=== PATIENT | female | born 1980 ===

== ENCOUNTER 2018-02-28 14:06 | Emergency (ER) | payer BC, OTHER ==
[2018-02-28] MEDS ORDERED: Lactated Ringer's 1,000 ML IV SCH ×2 (15:15→17:45)
[2018-02-28] MEDS ORDERED: Betamethasone Soluspan 30 mg/5mL Inj Susp IM ONE (20:14)
--- NOTE | 2018-02-28 21:20 | OBHP ---
Datetime: 02/28/2018 14:44 IP Adm Impression: , intrauterine IP Admit Plan: Observation/Evaluation; Discharge home Admit Comment, IP Provider: 37 yo at 27+ 4wks w/ EDC 05/26/2018, sent by Dr. Gil for diffuse abdominal pain x 1 week, dx'd w/ UTI at [facility] ED on ., 02/22/2018 and rx'd macrobid 1 00 mg BID x 7 days. Pt reports that she has not had a BM x 1 week, feels very gassy, tried prune jui ce yesterday and vomited. Pt reports that she tried to give herself an enema and fainted on ., 02/24/2018. Pt was seen by MFM u/s today and was found to have polyhydramnios, 24.6, CL 3.3-3.6 cm, no evidence of funneling noted. PMH: Healthy PSH: Robotic--> open myomectomy w/ Dr. 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 Gil Extremities - PN: Normal Abdomen - PN: Abnormal Back - PN: Normal Lungs - PN: Normal Heart - PN: Normal Neurologic - PN: Normal General - PN: Normal FHR - Baseline A Provider: 130's Membranes, Provider: Intact Comments, ACOG Physical Exam: Diffuse tenderness of abdomen EGA AdmitDate IP: 27.4 Vital Signs Provider: Reviewed IP Chief Complaint: Maternal discomfort NICHD Variability Prov Fetus A: Moderate 6-25bpm Dilatation, Provider: 0 Effacement, Provider: 0 Station, Provider: -3
[2018-03-01 09:16] VITALS: BP 115/64; PULSE 107; RESP 17; TEMP 98.2; O2SAT 99
== END 2018-02-28 21:00 | disposition home or self-care (01) ==
LOC: H.EROB2 14:06 → H.EROB 14:07 → H.EROB2 21:00
DX: O26.92 Pregnancy related conditions, unspecified, second trimester (principal); R10.2 Pelvic and perineal pain; O23.42 Unspecified infection of urinary tract in pregnancy, second trimester; Z3A.27 27 weeks gestation of pregnancy
CPT/HCPCS: 96360; 96372; 99283; J0702; J7120

== ENCOUNTER 2018-03-01 19:28 | Emergency (ER) | payer BC, OTHER ==
[2018-03-01] MEDS ORDERED: Betamethasone Soluspan 30 mg/5mL Inj Susp IM ONE (19:58)
[2018-03-02 02:03] VITALS: BP 113/65; PULSE 105; RESP 16; TEMP 98.9; O2SAT 99
--- NOTE | 2018-03-02 08:58 | OBDCSUM ---
Datetime: 03/01/2018 21:40 Discharged to, Provider: Home Follow up at, Provider: Dr. Gil Disch Instr Activity: Normal activity Disch Instr Diet: Regular Discharge Time: 03/01/2018 21:40 Follow up in weeks, Provider: March 08 for scheduled appointment Disch Referrals: None Discharge Comment, Provider: Orders called in and given to nurse by Dr [facility] Diagnosis Prov Other: Second steroid injection
--- NOTE | 2018-03-02 08:58 | OBHP ---
Datetime: 03/01/2018 19:59 IP Adm Impression: , intrauterine ; No Active Labor; Intact Membranes IP Admit Plan: Observation/Evaluation Admit Comment, IP Provider: 37 yo at 27.5 weeks based on YONY of 05/26/18 presents today for h er second Celestone IM shot and NST. Patient visted the OB ED yesterday for complaints of lower pelvi c pain. She was given a dose of Celestone 12mg yesterday and a dose of enema. She denies vaginal blee ding and loss of fluid per the vagina. She reports good movement. Patient reports she is being treated for a UTI with Macrobid and today is her last dose. Denies chest pain, shortness of breath, c snf pain, nausea, vomiting, fevers or dysuria. ROS: systems reviewed and negative except for stated above in the HPI. Obhx: 1 SAB PMH: Denies Social hx: Denies illicit drug use, smoking history and alcohol use. Surgical hx: Inguinal hernia repair in the . Breast reduction 2004 and Myomectomy 03/2018- no complications from either procedure. Medications: Tylenol; PNV; Nitrofurantoin- 1 capsule Q12H Allergies: Shellfish- Allergy Physical exam: In no acute distress. Heart: S1 and S2 appreciated on exam. No murmurs, gallops or rubs. Lungs: Clear air entry bilaterally. Abdomen: Soft, non-tender to palpation. Gravid FHT: 145 baseline; moderate variability; Accelerations present; No decelerations; No contractions ; Category 1 tracing. Assessment: 37 yo with IUP at 27.5 weeks based on YONY of 05/26/18 presents today for her se cond Celestone IM shot and NST Plan: - NST - Reactive thus far- category 1 tracing. - Celestone 12mg x1 dose to be given. Discussed with Dr. Joya ---Samanta Blackmon, PGY1 Watch Train Assembler OB Hospitalist on-call. I saw this patient upon coming into [facility]. She came for her 2nd dose of st eroids. Dr Gil was notified about status, exam and above. Then, he called nurse for further o rders. MAHNDO Pelvic Type - PN: Adequate Extremities - PN: Normal Abdomen - PN: Normal Back - PN: Normal Breast - PN: Not Done Lungs - PN: Normal Heart - PN: Normal Thyroid - PN: Not Done Neurologic - PN: Not Done HEENT - PN: Not Done General - PN: Normal FHR - Baseline A Provider: 145 IP Hx Assessment: The History has been Reviewed and is Current EGA AdmitDate IP: 27.5 Vital Signs Provider: Reviewed; Within Normal Limits IP Chief Complaint: Maternal discomfort NICHD Variability Prov Fetus A: Moderate 6-25bpm NICHD Accel Fetus A IP Provider: [id number] FHR Category Provider Fetus A: Category I NICHD Decel Fetus A IP Provider: None Genitourinary Exam: Normal DTRs - PN: Not Done
== END 2018-03-01 21:55 | disposition home or self-care (01) ==
LOC: H.EROB2 19:28
DX: O26.92 Pregnancy related conditions, unspecified, second trimester (principal); R10.2 Pelvic and perineal pain; Z23 Encounter for immunization; Z3A.27 27 weeks gestation of pregnancy
CPT/HCPCS: 96372; 99281; J0702